=== PATIENT | female | born 1995 | race Caucasian/White ===

== ENCOUNTER 2018-10-28 10:56 | Emergency (ER) | payer OTHER ==
[~2018-10-28] VITALS: Ht 162.6 cm; Wt 45.4 kg
[2018-10-28 10:56] VITALS: BP_SYST 83
[2018-10-28] MEDS ORDERED: ONDANSETRON HCL 4 MG/2 ML VIAL IVP ONE (11:30)
[2018-10-28] MEDS ORDERED: NACL 0.9% 1,000 ML IV ONE ×2 (11:30→13:30)
[2018-10-28] MEDS ORDERED: KETOROLAC TROMETHAMINE 30 MG VIAL IVP ONE (11:30)
[2018-10-28 11:51] LABS: BASOPHILS % (AUTO) 0.8 % (0.0-2.0); HEMATOCRIT 42.7 % (36-48); HEMOGLOBIN 14.4 g/dL (12.0-16.0); LYMPHOCYTES # (AUTO) 0.8 K/uL (1.0-5.5); LYMPHOCYTES % (AUTO) 13.5 % (20.5-51.5); MEAN CORPUSCULAR HEMOGLOBIN 31 pg (27-31); MEAN CORPUSCULAR HGB CONC 34 % (32-36); MEAN CORPUSCULAR VOLUME 92 fL (79.0-98.0); MONOCYTES # (AUTO) 0.4 K/uL (0.0-1.0); MONOCYTES % (AUTO) 7.2 % (1.7-9.3); NEUTROPHILS # (AUTO) 4.7 K/uL (1.8-7.7); NEUTROPHILS % (AUTO) 78.5 % (40.0-70.0); PLATELET COUNT (AUTO) 422 K/uL (130-430); RED BLOOD CELL COUNT(AUTO) 4.62 MIL/uL (4.2-6.2); RED CELL DISTRIBUTION WIDTH 13.1 % (9.0-15.0)
[2018-10-28 11:54] LABS: CALCIUM 9.4 mg/dL (8.4-11.0); CREATININE 0.7 mg/dL (0.55-1.30); POTASSIUM 3.9 mmol/L (3.5-5.1)
[2018-10-28 11:58] LABS: TOTAL BILIRUBIN 0.3 mg/dL (0.0-1.0)
[2018-10-28 13:45] VITALS: BP_SYST 101
== END 2018-10-28 13:45 | disposition home or self-care (01) ==
LOC: SED 10:56
DX: K29.70 Gastritis, unspecified, without bleeding (principal)
CPT/HCPCS: 36415; 80053; 81025; 83690; 85025; 93005; 96361; 96374; 96375; 99284; J1885; J2405; J7030

== ENCOUNTER 2018-12-10 10:04 | Emergency (ER) | payer MEDICAID, OTHER ==
[~2018-12-10] VITALS: Ht 162.6 cm; Wt 43.1 kg
[2018-12-10 10:09] VITALS: BP_SYST 106
--- NOTE | 2018-12-10 10:16 | NUR ---
Patient to ER bed 5 to gown for evaluation. Side rails up. Report given to Rivera alfonso.
--- NOTE | 2018-12-10 10:20 | NUR ---
ER Dr. Walsh at bedside examining patient.
[2018-12-10] MEDS ORDERED: NACL 0.9% 1,000 ML IV ONE (10:30)
[2018-12-10] MEDS ORDERED: KETOROLAC TROMETHAMINE 30 MG VIAL IVP ONE (10:30)
[2018-12-10] MEDS ORDERED: ONDANSETRON HCL 4 MG/2 ML VIAL IVP ONE (10:30)
[2018-12-10] MEDS ORDERED: PANTOPRAZOLE SODIUM 40 MG/VIAL (PROTONIX) IVP ONE (10:45)
--- NOTE | 2018-12-10 10:50 | NUR ---
Pt complaiing of abdominal pain for an entire month, accompanied by vomiting. Pt denies dizziness.
[2018-12-10 11:01] LABS: BASOPHILS # (AUTO) 0.1 K/uL (0.0-0.2); EOSINOPHILS # (AUTO) 0.1 K/uL (0.0-0.4); EOSINOPHILS % (AUTO) 1.1 % (0.0-4.0); HEMOGLOBIN 14.6 g/dL (12.0-16.0); LYMPHOCYTES # (AUTO) 1.5 K/uL (1.0-5.5); LYMPHOCYTES % (AUTO) 27.4 % (20.5-51.5); MEAN CORPUSCULAR HEMOGLOBIN 30 pg (27-31); MEAN CORPUSCULAR HGB CONC 33 % (32-36); MEAN CORPUSCULAR VOLUME 90 fL (79.0-98.0); MONOCYTES # (AUTO) 0.5 K/uL (0.0-1.0); MONOCYTES % (AUTO) 8.6 % (1.7-9.3); NEUTROPHILS # (AUTO) 3.4 K/uL (1.8-7.7); NEUTROPHILS % (AUTO) 61.9 % (40.0-70.0); PLATELET COUNT (AUTO) 473 K/uL (130-430); RED BLOOD CELL COUNT(AUTO) 4.92 MIL/uL (4.2-6.2); WHITE BLOOD COUNT (AUTO) 5.6 K/uL (4.8-10.8)
[2018-12-10 11:11] LABS: CALCIUM 9.6 mg/dL (8.4-11.0); CREATININE 0.75 mg/dL (0.55-1.30); POTASSIUM 4.3 mmol/L (3.5-5.1)
[2018-12-10 11:27] LABS: ALBUMIN 4.4 g/dL (3.4-4.8); TOTAL BILIRUBIN 0.6 mg/dL (0.0-1.0)
--- NOTE | 2018-12-10 11:43 | NUR ---
Medication administered. Pt tolerated well. No adverse reactions noted. Room lights turned off per pt request.
[2018-12-10 12:26] VITALS: BP_SYST 106
--- NOTE | 2018-12-10 12:26 | NUR ---
Patient given written and verbal discharge instructions and verbalizes understanding. ER MD discussed with patient the results and treatment provided. Patient in stable condition. ID arm band removed. Rx of Zofran given. Patient educated on pain management and to follow up with PMD. Pain Scale 0/10. Opportunity for questions provided and answered. Medication side effect fact sheet provided.
== END 2018-12-10 12:26 | disposition home or self-care (01) ==
LOC: SED 10:04
DX: R10.9 Unspecified abdominal pain (principal); R11.10 Vomiting, unspecified; F11.10 Opioid abuse, uncomplicated; F17.290 Nicotine dependence, other tobacco product, uncomplicated
CPT/HCPCS: 36415; 74021; 80053; 83690; 85025; 96361; 96374; 96375; 99284; C9113; J1885; J2405; J7030

== ENCOUNTER 2018-12-15 09:44 | Emergency (ER) | payer MEDICAID ==
[~2018-12-15] VITALS: Ht 162.6 cm; Wt 54.4 kg
--- NOTE | 2018-12-15 10:30 | NUR ---
Patient to ER bed 5 to gown for evaluation. Side rails up.
[2018-12-15 10:33] VITALS: BP_SYST 130
--- NOTE | 2018-12-15 10:35 | NUR ---
pt states that she is hearing voices and feels scared. Pt stopped taking her psych meds one week ago. Pt his here for psych meds.
--- NOTE | 2018-12-15 10:40 | NUR ---
ER at bedside examining patient.
[2018-12-15 11:32] VITALS: BP_SYST 130
--- NOTE | 2018-12-15 11:34 | NUR ---
Patient given written and verbal discharge instructions and verbalizes understanding. ER MD discussed with patient the results and treatment provided. Patient in stable condition. ID arm band removed. Rx of Haldol and Benzotrpine given. Patient educated on pain management and to follow up with PMD. Pain Scale 0/10.Opportunity for questions provided and answered. Medication side effect fact sheet provided.
== END 2018-12-15 11:32 | disposition home or self-care (01) ==
LOC: SED 09:44
DX: R44.0 Auditory hallucinations (principal); R44.1 Visual hallucinations; F17.210 Nicotine dependence, cigarettes, uncomplicated; Z76.0 Encounter for issue of repeat prescription
CPT/HCPCS: 99283

== ENCOUNTER 2019-06-14 08:09 | Emergency (ER) | payer MEDICAID, OTHER ==
[~2019-06-14] VITALS: Ht 162.6 cm; Wt 54.4 kg
[2019-06-14 08:20] VITALS: BP_SYST 107
[2019-06-14 08:40] VITALS: BP_SYST 107
== END 2019-06-14 08:40 | disposition home or self-care (01) ==
LOC: SED 08:09
DX: R44.0 Auditory hallucinations (principal); F11.90 Opioid use, unspecified, uncomplicated; F17.210 Nicotine dependence, cigarettes, uncomplicated; Z71.6 Tobacco abuse counseling; Z76.0 Encounter for issue of repeat prescription
CPT/HCPCS: 99284

== ENCOUNTER 2019-08-09 02:18 | Emergency (ER) | payer OTHER ==
[~2019-08-09] VITALS: Ht 162.6 cm; Wt 49.9 kg
[2019-08-09 02:28] VITALS: BP_SYST 112
--- NOTE | 2019-08-09 02:28 | NUR ---
Patient to ER bed 7 to gown for evaluation. Side rails up. Report given to LYLE LEON.
--- NOTE | 2019-08-09 02:32 | NUR ---
Note aidan in ED - 08/09/19 at 0416 by [email or web address] Patient came to ER. C/O medication refill x today. Patient states " ran out medications 3 days ago, (Hadol and Benzotropamine), started hearing voice one day, no try to harm myself. " Hx Bipolar A/O,X4, nausea, no vomitting, vss.
--- NOTE | 2019-08-09 02:36 | NUR ---
ER Dr. Walsh at bedside examining patient.
[2019-08-09] MEDS ORDERED: ONDANSETRON HCL 4 MG/2 ML VIAL IVP ONE (02:45)
[2019-08-09] MEDS ORDERED: NACL 0.9% 1,000 ML IV ONE (02:45)
--- NOTE | 2019-08-09 03:35 | NUR ---
Patient no nausea or vomitting, vss.
[2019-08-09 04:31] VITALS: BP_SYST 124
--- NOTE | 2019-08-09 04:31 | NUR ---
Patient given written and verbal discharge instructions and verbalizes understanding. ER MD discussed with patient the results and treatment provided. Patient in stable condition. ID arm band removed. IV catheter removed intact and dressing applied, no active bleeding. Rx of Haloperidol and Benztropine given. Patient educated on pain management and to follow up with PMD. Pain Scale 0/10. Opportunity for questions provided and answered. Medication side effect fact sheet provided.
== END 2019-08-09 04:31 | disposition home or self-care (01) ==
LOC: SED 02:18
DX: E86.0 Dehydration (principal); F11.10 Opioid abuse, uncomplicated; Z76.0 Encounter for issue of repeat prescription; Z71.6 Tobacco abuse counseling
CPT/HCPCS: 81025; 96361; 96374; 99283; J2405; J7030